=== PATIENT | female | born 1995 | race Caucasian/White ===

== ENCOUNTER 2018-05-05 18:12 | Inpatient (IN) | payer OTHER ==
[~2018-05-05] VITALS: Ht 149.9 cm; Wt 68.9 kg
[2018-05-05] MEDS ORDERED: FERR-252 PO (18:57)
[2018-05-05] MEDS ORDERED: TERBUTALINE 1 MG/ML VIAL SUBQ SCH (19:25)
[2018-05-05] MEDS ORDERED: TERBUTALINE 1 MG/ML VIAL SUBQ ONE (19:31)
[2018-05-05] MEDS: LACTATED RINGERS 1,000 ML IV SCH (19:43)
[2018-05-05 20:27] LABS: BASOPHILS % (AUTO) 0.3 % (0.0-2.0); EOSINOPHILS # (AUTO) 0.1 K/uL (0-0.4); EOSINOPHILS % (AUTO) 0.4 % (0.0-4.0); HEMATOCRIT 30.5 % (36-48); LYMPHOCYTES # (AUTO) 2.4 K/uL (2.5-16.5); LYMPHOCYTES % (AUTO) 20.8 % (20.5-51.1); MEAN CORPUSCULAR HEMOGLOBIN 29 pg (27-31); MEAN CORPUSCULAR HGB CONC 33 g/dL (33-37); MEAN CORPUSCULAR VOLUME 87.5 fL (80-94); MONOCYTES # (AUTO) 0.5 K/uL (0.8-1.0); MONOCYTES % (AUTO) 4.7 % (1.7-9.3); NEUTROPHILS # (AUTO) 8.3 K/uL (1.8-7.7); NEUTROPHILS % (AUTO) 73.8 % (42.2-75.2); PLATELET COUNT (AUTO) 189 K/uL (140-450); RED BLOOD CELL COUNT(AUTO) 3.49 MIL/uL (4.20-5.40); RED CELL DISTRIBUTION WIDTH 14.2 % (11.6-13.7); WHITE BLOOD COUNT (AUTO) 11.3 K/uL (4.5-11.0)
[2018-05-05 20:30] LABS: APPEARANCE,URINE CLEAR (CLEAR); COLOR,URINE YELLOW (YELLOW)
[2018-05-05 20:31] LABS: BILIRUBIN,URINE NEGATIVE (NEGATIVE); BLOOD, URINE NEGATIVE (NEGATIVE); LEUKOCYTE ESTERASE ,URINE NEGATIVE (NEGATIVE); NITRITE, URINE NEGATIVE (NEGATIVE); PH,URINE 6.5 (5.0-9.0); UGLUCOSE NEGATIVE (NEGATIVE)
[2018-05-05 21:13] LABS: PROTHROMBIN TIME 9.4 secs (10.8-13.4)
[2018-05-05] MEDS: TERBUTALINE 2.5 MG TAB PO SCH (23:35)
[2018-05-05] MEDS ORDERED: TERBUTALINE 2.5 MG TAB ONE (23:37)
[2018-05-06] MEDS: LACTATED RINGERS 1,000 ML IV SCH ×2 (02:33→09:04)
[2018-05-06] MEDS ORDERED: TERBUTALINE 2.5 MG TAB ONE ×3 (03:38→12:14)
[2018-05-06] MEDS: TERBUTALINE 2.5 MG TAB PO SCH ×3 (03:47→12:11)
--- NOTE | 2018-05-06 08:31 | NUR ---
PATIENT HAS BEEN SCREENED AND CATEGORIZED LOW NUTRITION RISK. PATIENT WILL BE SEEN WITHIN 7 DAYS OF ADMISSION. 05/12/[address]
== END 2018-05-06 14:20 | disposition home or self-care (01) | DRG 566 ==
LOC: MLD 18:12 → OBSVTOIN 05-06 11:01
PROVIDERS: ADMIT Obstetrics & Gynecology; ATTEND Obstetrics & Gynecology
DX: O26.893 Other specified pregnancy related conditions, third trimester (principal); Z3A.34 34 weeks gestation of pregnancy
CPT/HCPCS: G0378 ×17; 36415; 76805; 81003; 85025; 85379; 85384; 85610; 85730; C1758; J3105; J7120; Q0092